=== PATIENT | female | born 1990 | race Two or more races ===

== ENCOUNTER 2023-11-06 18:29 | Emergency (ER) | payer OTHER ==
[~2023-11-06] VITALS: Ht 165.1 cm; Wt 84.4 kg
[2023-11-06 20:31] LABS: MEAN CORPUSCULAR HEMOGLOBIN 20.3 pg (27.00-32.0); MEAN CORPUSCULAR HGB CONC 31.5 g/dl (32.0-36.0); PLATELET COUNT 318 K/uL (150-450); RED CELL DISTRIBUTION WIDTH 15.9 % (11.5-14.5)
[2023-11-06 20:32] LABS: MEAN CELL VOLUME 64.4 fL (80.00-100.00)
[2023-11-06 21:20] LABS: CREATININE SERUM 0.88 mg/dL (0.55-1.02); POTASSIUM 3.42 mEq/L (3.5-5.1)
[2023-11-06 21:32] LABS: URINE APPEARANCE Clear; URINE BILIRRUBIN Negative (NEGATIVE); URINE BLOOD Moderate; URINE COLOR Yellow; URINE GLUCOSE Negative (NEGATIVE); URINE LEUKOCYTE Trace; URINE NITRATE Negative; URINE PROTEIN Negative (NEGATIVE); URINE UROBILINOGEN 0.2 E.U./dl
[2023-11-06 21:35] LABS: URINE BACTERIA 37.7 uL (0.0-1933); URINE EPITHELIAL CELLS 10.6 uL (0.0-38.8); URINE WBC 22.2 uL (0.0-23.2)
== END 2023-11-06 23:23 | disposition home or self-care (01) ==
LOC: ER 18:29
PROVIDERS: Emergency Medicine
DX: O20.8 Other hemorrhage in early pregnancy (principal); Z3A.01 Less than 8 weeks gestation of pregnancy